=== PATIENT | female | born 1990 | race Caucasian/White ===

== ENCOUNTER → 2019-06-21 | Outpatient (CLI) | payer OTHER ==
--- NOTE | 2019-06-21 10:05 | REPVR ---
PROCEDURE INFORMATION: Exam: CT Temporal Bones Without Contrast. Exam date and time: 06/21/2019 9:19 AM Age: 28 years old Clinical indication: Pain; Other: Ear; Additional info: RT otitis media TECHNIQUE: Imaging protocol: Computed tomography images of the temporal bones without contrast. Radiation optimization: All CT scans at this facility use at least one of these dose optimization techniques: automated exposure control; mA and/or kV adjustment per patient size (includes targeted exams where dose is matched to clinical indication); or iterative reconstruction. COMPARISON: No relevant prior studies available. FINDINGS: RIGHT TEMPORAL BONE: Right inner ear: Normal. 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 Right external auditory canal: Normal. Right facial nerve canal: Normal. Right jugular foramen: No jugular dehiscence. Right carotid canal: No aberrent carotid canal. Right mastoid air cells: Normal. No mastoid effusions. LEFT TEMPORAL BONE: Left inner ear: Normal. Left ossicles and middle ear: Normal. The middle ear ossicles are intact. Left external auditory canal: Normal. Left facial nerve canal: Normal. Left jugular foramen: No jugular dehiscence. Left carotid canal: No aberrent carotid canal. Left mastoid air cells: Normal. No mastoid effusions. 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 IMPRESSION: 1. 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 Please correlate with surgical history. Direct comparison to prior studies is recommended. 2. 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 Clinical findings will determine the need for further evaluation with postcontrast MRI of the brain. Electronically signed by: Frank Cheng On 06/21/2019 10:05:14 AM
== END ==
LOC: M RAD 09:09
PROVIDERS: ATTEND Otolaryngology
DX: H66.41 Suppurative otitis media, unspecified, right ear (principal)